=== PATIENT | female | born 1955 ===

== ENCOUNTER 2020-09-26 07:32 | Day surgery (SDC) | payer OTHER | END 2020-09-26 12:15 | disposition home or self-care (01) | LOC: AMB-ENDOS 07:32 | PROVIDERS: ATTEND Colon & Rectal Surgery | DX: K57.32 Diverticulitis of large intestine without perforation or abscess without bleeding (principal); K64.1 Second degree hemorrhoids; Z20.822 Contact with and (suspected) exposure to COVID-19 ==

== ENCOUNTER 2020-10-14 09:54 | Outpatient (CLI) | payer OTHER | END 2020-10-14 10:14 | disposition home or self-care (01) | LOC: RAD 09:54 | PROVIDERS: ATTEND Orthopaedic Surgery | DX: M79.631 Pain in right forearm (principal); M25.531 Pain in right wrist; M25.561 Pain in right knee ==